=== PATIENT | female | born 1965 | race Caucasian/White ===

== ENCOUNTER 2021-07-02 10:06 | Emergency (ER) | payer OTHER, SELFPAY ==
[2021-07-02 10:18] VITALS: BP 118/66; PULSE 71; RESP 18; TEMP 37; O2SAT 98
--- NOTE | 2021-07-02 10:42 | ED.EAR ---
HPI - Ear Problem General Chief complaint: Ear Stated complaint: dizziness Time Seen by Provider: 07/02/21 10:25 Source: patient and RN notes reviewed Mode of arrival: ambulatory Limitations: no limitations History of Present Illness HPI Narrative: Patient presents today with a 5-day history of dizziness and vertigo symptoms. States symptoms are most prominent when she is laying down and rolling over. States she feels that her right ear is very full of fluid. No dizziness at present time. No dizziness when she is sitting upright. She had a very similar and more severe episode approximately 12 years ago that lasted for approximately 3 weeks. At that time she was seen by an ENT/M?ni?re's disease expert and was treated with a diuretic and steroid, which helped cure her symptoms. States the symptoms during this episode are very similar but less severe. She denies chest pain, shortness of breath, numbness or tingling in her extremities, Vision changes, vomiting. Related Data Home Medications Medication Instructions Recorded Confirmed rosuvastatin 10 mg tablet 10 mg PO DAILY tablet 02/20/19 07/02/21 Allergies Allergy/AdvReac Type Severity Reaction Status Date / Time No Known Allergies Allergy Verified 07/02/21 10:24 Review of Systems Review of Systems: CONSTITUTIONAL: Denies body aches, fever, chills, or sweats. EYES: Denies visual changes, redness, or discharge. ENT: Denies rhinorrhea, congestion, sore throat, or otalgia.+ Left ear fullness CARDIOVASCULAR: Denies chest pain, palpitations, or edema. RESPIRATORY: Denies cough or dyspnea. GASTROINTESTINAL: Denies abdominal pain, vomiting, or diarrhea.+ Intermittent nausea GENITOURINARY: Denies dysuria or hematuria. SKIN: Denies rash, itching, or wounds. MUSCULOSKELETAL: Denies back pain, joint pain, or myalgia. NEUROLOGIC: Denies headache, numbness, tingling, or weakness.+ Dizziness PSYCH: Denies depression or anxiety. PMF Past Medical History Medical History High cholesterol Family History Family History Mother A-fib Social History Social History Smoking status: Never smoker Alcohol intake: never Comments At time of signature, I have reviewed and agree with nursing past medical, surgical, social and family history unless otherwise noted. Please see nursing chart for further information. There is no relevant family history pertinent to the presenting complaint Exam Narrative: GENERAL: Well-appearing, well-nourished, and in no acute distress. HEAD: Normocephalic, atraumatic. EYES: EOMI. No redness or drainage. Conjunctivae normal. ENT: Mucous membranes pink and moist. Nares clear. No rhinorrhea. TMs normal bilaterally. Throat normal. Uvula midline. Mild to moderate amount of clear fluid behind the right TM without evidence of infection. NECK: Normal AROM. Supple. No lymphadenopathy. CHEST: No respiratory distress. Clear to auscultation. HEART: Regular rate and rhythm. No murmur appreciated. Normal peripheral pulses. EXTREMITIES: Normal range of motion. No edema. SKIN: Warm, dry, no rash. Capillary refill normal. Normal skin turgor. NEURO: No focal deficits. Alert and oriented x3. Gait steady. PSYCH: Normal affect. No signs of depression or anxiety. Course Course Level of Care: Express Care Visit Vital Signs Vital signs: Vital Signs Temperature 98.6 F 07/02/21 10:18 Pulse Rate 71 07/02/21 10:18 Respiratory Rate 18 07/02/21 10:18 Blood Pressure 118/66 07/02/21 10:18 Pulse Oximetry 98 07/02/21 10:18 Temperature 98.6 F 07/02/21 10:18 Pulse Rate 71 07/02/21 10:18 Respiratory Rate 18 07/02/21 10:18 Blood Pressure 118/66 07/02/21 10:18 Pulse Oximetry 98 07/02/21 10:18 Reviewed Medical Decision Making Differential Diagno
== END 2021-07-02 10:51 | disposition home or self-care (01) ==
PROVIDERS: Emergency Provider Nurse Practitioner; PCP Internal Medicine
DX: H65.01 Acute serous otitis media, right ear (principal); E78.00 Pure hypercholesterolemia, unspecified
CPT/HCPCS: 99213; G0463

== ENCOUNTER 2022-04-20 14:08 | Outpatient (RCR) | payer OTHER, SELFPAY | END 2022-04-20 14:11 | disposition home or self-care (01) | LOC: ANHHIPT 14:08 | PROVIDERS: PCP Nurse Practitioner Family; Visit Provider Nurse Practitioner Family | DX: M25.512 Pain in left shoulder (principal) | CPT/HCPCS: 99199 ==

== ENCOUNTER 2022-06-18 08:17 | Emergency (ER) | payer OTHER, SELFPAY ==
[2022-06-18 08:39] VITALS: BP 117/71; PULSE 105; RESP 20; TEMP 37.9; O2SAT 96
--- NOTE | 2022-06-18 08:42 | ED.URI ---
HPI - URI/Sore Throat General Chief Complaint: Upper Respiratory Infection Stated Complaint: sorethroat,bilateral ear discomfort Time Seen by Provider: 06/18/22 08:42 Source: patient and RN notes reviewed Mode of arrival: ambulatory Limitations: no limitations History of Present Illness HPI Narrative: 56-year-old female presented for complaint of sinus pressure, nasal drainage, headache, cough productive yellow sputum. Endorses her head feels full with bilateral ear pressure, fever and sweats. Onset 3 days. She denies known sick contacts. She denies shortness of breath, wheezing, nausea, vomiting, or diarrhea. She has taken antihistamines and Motrin for symptoms. MD elicited complaint: cough Related Data Allergies Allergy/AdvReac Type Severity Reaction Status Date / Time No Known Allergies Allergy Verified 06/18/22 08:36 Review of Systems Review of Systems: ROS per HPI PMFSH Past Medical History Medical History High cholesterol Family History Family History Mother A-fib Social History Social History Smoking status: Never smoker Alcohol intake: current Alcohol use details: rarely Substance use: never Living arrangements: with family Occupation/Education: occupation Gender identity (if verbalized by the patient): Female Exam Narrative: GENERAL: Ill-appearing, nontoxic no acute distress. HEAD: Normocephalic EYES: PERRLA, conjunctivae clear ENT: Mucous membranes moist. TM pearly hoffmann with dull light reflex bilaterally; no tragal tenderness. Oropharynx erythematous without tonsillar swelling, lesions or exudate, no drooling, no hoarseness, no trismus, uvula midline. No tripod positioning, muffled voice, soft palate or pharyngeal wall bulging NECK: Supple. No lymphadenopathy CHEST: Clear to auscultation, breath sounds equal. HEART: Regular rate and rhythm. No murmur heard. SKIN: Warm, dry, no rash. NEURO: Alert and oriented x3. Course Course Emergency Course: Patient is aware of diagnosis, understands and agrees to treatment plan. Anticipatory guidance given. Patient agrees to follow-up as directed and is aware of reasons to seek care at the emergency department. Portions of this record may have been created with voice recognition software Level of Care: Express Care Visit Vital Signs Vital signs: Vital Signs Temperature 100.2 F H 06/18/22 08:39 Pulse Rate 105 H 06/18/22 08:39 Respiratory Rate 20 06/18/22 08:39 Blood Pressure 117/71 06/18/22 08:39 Pulse Oximetry 96 06/18/22 08:39 Oxygen Delivery Room Air 06/18/22 08:39 Temperature 100.2 F H 06/18/22 08:39 Pulse Rate 105 H 06/18/22 08:39 Respiratory Rate 20 06/18/22 08:39 Blood Pressure 117/71 06/18/22 08:39 Pulse Oximetry 96 06/18/22 08:39 Oxygen Delivery Room Air 06/18/22 08:39 reviewed MDM - URI/Sore Throat MDM Narrative Medical decision making narrative: Results of POS COVID test reviewed with patient. Advised supportive measures and signs/symptoms to go to the ER. Pt is appropriate for outpt treatment and f/u. Differential Diagnosis Differential diagnosis: Likely upper respiratory infection, sinusitis and viral infection Lab Data Labs: Lab Results 06/18/22 Range/Units 08:50 POC SARS CoV-2 Ag Positive (Negative) Discharge Plan Discharge Clinical Impression: COVID-19 Patient Disposition: Home, Self-Care Condition: Stable Instructions: COVID-19 (Coronavirus Disease 2019) (ED) Additional Instructions: Your rapid COVID test was positive today. The following recommendations have been made by the CDC and local Health Departments, regarding COVID-19: -Those individuals with mild cases of COVID-19 can generally be discontinued from isolation 5 days AFTER the onset of symptoms AND the reso
== END 2022-06-18 09:16 | disposition home or self-care (01) ==
PROVIDERS: Emergency Provider Nurse Practitioner Family; PCP Physician Assistant Medical
DX: U07.1 COVID-19 (principal); E78.00 Pure hypercholesterolemia, unspecified
CPT/HCPCS: 87426; 99212; C9803; G0463